=== PATIENT | female | born 1955 | race Caucasian/White ===

== ENCOUNTER 2016-06-25 09:17 | Emergency (ER) | payer OTHER ==
[~2016-06-25] VITALS: Wt 72.0 kg
[2016-06-25] MEDS ORDERED: HYDROCODONE/APAP (5/325) TAB PO ONE (10:00)
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
--- NOTE | 2016-06-25 10:54 | RADRPT ---
PROCEDURE: XR nasal bones. CLINICAL INDICATION: Trauma TECHNIQUE: Three views were performed. COMPARISON: No prior studies are available for comparison. FINDINGS: No acute fracture or dislocation is seen. The bone mineralization is normal. The soft tissues are unremarkable. IMPRESSION: No acute fracture or dislocation noted. .Travis Gan MD, Date Time Electronically viewed and signed by .Travis Gan MD, on 06/25/2016 10:54 .A/
[2016-06-25] MEDS ORDERED: AZIT250T94 PO (10:58)
[2016-06-25] MEDS ORDERED: HYDR-906 PO (10:58)
== END 2016-06-25 11:05 | disposition home or self-care (01) ==
LOC: FTE 09:17
DX: S09.92XA Unspecified injury of nose, initial encounter (principal); I10 Essential (primary) hypertension; W50.0XXA Accidental hit or strike by another person, initial encounter; Y92.9 Unspecified place or not applicable
CPT/HCPCS: 70160; Z7502; Z7610

== ENCOUNTER 2016-10-05 21:39 | Inpatient (IN) | payer OTHER ==
[~2016-10-05] VITALS: Ht 160 cm; Wt 82.8 kg
[~2016-10-05 21:39] MED LIST: AZIT250T94 PO; HYDR-906 PO
[2016-10-05] MEDS ORDERED: SOD CHLORIDE 0.9% 1,000 ML IV STA (22:07)
[2016-10-05] MEDS ORDERED: ONDANSETRON 4 MG INJ IV STA (22:07)
[2016-10-05] MEDS ORDERED: MECLIZINE 12.5 MG TAB PO ONE (22:30)
[2016-10-05] MEDS ORDERED: CYCL7.5T9 PO (22:45)
[2016-10-05] MEDS ORDERED: KETO75CA PO (22:45)
[2016-10-05] MEDS ORDERED: LANS15CA5 PO (22:45)
[2016-10-05] MEDS ORDERED: TRAM150C25 PO (22:45)
[2016-10-05 22:54] LABS: ADD SCAN DIFF NO
[2016-10-05 22:57] LABS: BASOPHILS % 0.3 % (0.0-2.0); EOSINOPHILS # 0.1 10^3/ul (0.0-0.5); EOSINOPHILS % 0.9 % (0.0-7.0); HEMATOCRIT 41.5 % (37.0-47.0); HEMOGLOBIN 14.4 g/dl (12.0-16.0); LYMPHOCYTES # 3.2 10^3/ul (0.8-2.9); LYMPHOCYTES % 27.4 % (15.0-51.0); MEAN CORPUSCULAR HEMOGLOBIN 31.1 pg (29.0-33.0); MEAN CORPUSCULAR HGB CONC 34.7 g/dl (32.0-37.0); MEAN CORPUSCULAR VOLUME 89.6 fl (82.0-101.0); MEAN PLATELET VOLUME 10.2 fl (7.4-10.4); MONOCYTE # 0.5 10^3/ul (0.3-0.9); MONOCYTES % 3.9 % (0.0-11.0); NEUTROPHIL # 7.8 10^3/ul (1.6-7.5); NEUTROPHILS % 67.2 % (39.0-77.0); PLATELET COUNT 402 10^3/UL (140-415); RED BLOOD COUNT 4.63 10^6/ul (4.20-5.40); RED CELL DISTRIBUTION WIDTH 12.4 % (11.5-14.5); WHITE BLOOD COUNT 11.7 10^3/ul (4.8-10.8)
[2016-10-05] MEDS ORDERED: morphine 4 MG/ML VIAL IV STA (22:59)
[2016-10-05 23:12] LABS: INR 0.9; PROTIME 12.1 Sec (12.2-14.2); PT RATIO 0.9
[2016-10-05 23:13] LABS: PARTIAL THROMBOPLASTIN TIME 26.3 Sec (25.0-35.0)
--- NOTE | 2016-10-05 23:15 | RADRPT ---
PROCEDURE: XR Chest. CLINICAL INDICATION: Shortness of breath. TECHNIQUE: AP Portable chest. COMPARISON: No pertinent prior examinations were submitted for comparison. FINDINGS: There is mild cardiomegaly. The lungs are clear. The osseous structures are unremarkable. IMPRESSION: No acute findings. RPTAT: HIKT .Candido Pastor MD, MD Date Time Electronically viewed and signed by .Candido Pastor MD, MD on 10/05/2016 23:14 .T/
[2016-10-05 23:19] LABS: ALANINE AMINOTRANSFERASE 29 IU/L (13-69); ALBUMIN 5.1 g/dl (3.3-4.9); ALBUMIN/GLOBULIN RATIO 1.82; ALKALINE PHOSPHATASE 83 IU/L (42-121); ANION GAP 14 (8-16); ASPARTATE AMINO TRANSFERASE 33 IU/L (15-46); BLOOD UREA NITROGEN 23 mg/dl (7-20); CARBON DIOXIDE 24 mmol/L (21-31); CHLORIDE 103 mmol/L (97-110); CREATININE 0.87 mg/dl (0.44-1.00); GLUCOSE 128 mg/dl (70-220); POTASSIUM 4.2 mmol/L (3.5-5.1); SODIUM 137 mmol/L (135-144); TOTAL PROTEIN 7.9 g/dl (6.1-8.1)
--- NOTE | 2016-10-05 23:23 | RADRPT ---
PROCEDURE: CT Brain without. CLINICAL INDICATION: Subtle onset vertigo. TECHNIQUE: A CT of the brain was performed on multidetector high-resolution CT scanner utilizing a xial sections from the skull base through the vertex without contrast. The scan was reviewed in sof t tissue brain and high frequency resolution bone algorithm windows. Images were reviewed on a high -resolution PACS workstation. One or more the following does reduction techniques were utilized: Aut omated exposure control, adjustment of the mA/ or kV according to patient's size, or use of iterativ e reconstruction technique. The exam CTDI = 43.86 mGy and the DLP = 720.23 mGy-cm. COMPARISON: None available. FINDINGS: The ventricles and sulci are minimally prominent indicative of volume loss. There is no intracrania l hemorrhage, mass effect or midline shift. No abnormal intra-axial or extra-axial fluid collection s are seen. The daniels/white matter differentiation is preserved. There are mild scattered foci of hypoattenuation in the white matter, which are nonspecific in etiol ogy but likely reflect chronic small vessel ischemic changes. There are mild intracranial vascular calcifications consistent with atherosclerosis. Deformity of the left lamina papyracea is noted like ly chronic. The visualized paranasal sinuses demonstrate mild scattered mucosal thickening mainly i n ethmoid air cells. The mastoid air cells are essentially clear. IMPRESSION: 1. No acute intracranial hemorrhage, transcortical infarction or mass effect. If clinical concern p ersists consider brain MRI. 2. Mild intracranial atherosclerosis and chronic small vessel ischemic changes. 3. Minimal generalized cerebral volume loss. RPTAT: HFN .Luke Vieira MD, MD Date Time Electronically viewed and signed by .Luke Vieira MD, MD on 10/05/2016 23:22 .N/
[2016-10-05 23:33] LABS: TROPONIN-I < 0.012 ng/ml (0.00-0.12)
[2016-10-06] VITALS (10 sets, daily range): BP systolic 125–167; BP diastolic 59–82; PULSE 58–75; RESP 18–19; Ht 160 cm; Wt 82.8 kg
[2016-10-06 00:15] LABS: ADD UMIC NO; UR ASCORBIC ACID NEGATIVE (NEGATIVE); UR BACTERIA FEW /HPF (NONE SEEN); UR BILIRUBIN (Dip) NEGATIVE (NEGATIVE); UR BLOOD (Dip) NEGATIVE (NEGATIVE); UR CLARITY SLIGHTLY CLOUDY (CLEAR); UR COLOR YELLOW (YELLOW); UR GLUCOSE (Dip) NEGATIVE (NEGATIVE); UR KETONES (Dip) NEGATIVE (NEGATIVE); UR LEUKOCYTE ESTERASE (Dip) NEGATIVE Leu/ul (NEGATIVE); UR NITRITE (Dip) NEGATIVE (NEGATIVE); UR RBC 1 /HPF (0-5); UR SPECIFIC GRAVITY (Dip) 1.016 (1.003-1.030); UR TOTAL PROTEIN (Dip) NEGATIVE (NEGATIVE); UR UROBILINOGEN (Dip) NEGATIVE (NEGATIVE)
[2016-10-06 00:31] LABS: UR SQUAMOUS EPITHELIAL CELL FEW /HPF (FEW)
[2016-10-06] MEDS ORDERED: MECLIZINE 12.5 MG TAB PO ONE (03:00)
[2016-10-06] MEDS ORDERED: LIDOCAINE/MYLANTA 40 ML BTL PO ONE (03:30)
[2016-10-06] MEDS ORDERED: ASPIRIN 81 MG TAB PO ONE (03:30)
[2016-10-06] MEDS ORDERED: SOD CHLORIDE 0.9% 1,000 ML IV ONE (04:00)
[2016-10-06] MEDS ORDERED: NITROGLYCERIN (SL) 0.4 MG TAB SL ONE (04:00)
--- NOTE | 2016-10-06 04:23 | ERA ---
ER Documentation Chief Complaint Date/Time DATE: 10/06/16 TIME: 04:18 Chief Complaint c/o nausea and vomiting. Dizzy x 3 hours. HPI 61-year-old female comes in for sudden onset of vertigo with vomiting and chest pain described as a sharp and pressure-like sensation substernal. Also has upper abdominal pain that did not start until she began vomiting. Denies fevers and chills. ROS All systems reviewed and are negative except as per history of present illness. Medications Home Meds Reported Medications Ketoprofen (Orudis) 75 Mg Capsule, 75 MG PO TID, CAP 10/05/16 Cyclobenzaprine Hcl (Cyclobenzaprine) 7.5 Mg Tablet, 7.5 MG PO Q8 Y for MUSCLE SPASMS, #60 TAB 10/05/16 Tramadol Hcl* (Tramadol* ER) 150 Mg Cpmp.25.75, 150 MG PO DAILY, #30 TAB 10/05/16 Lansoprazole* (Lansoprazole*) 15 Mg Capsule.dr, 15 MG PO DAILY, CAP 10/05/16 Discontinued Scripts Hydrocodone/Acetaminophen ([place] 5-325 Tablet) 1 Each Tablet, 1 TAB PO Q6H Y for PAIN, #12 TAB Prov:KARI CROOKS PA-C 06/25/16 Azithromycin* (Zithromax*) 250 Mg Tablet, 250 MG PO .ZPACK DIRECTED, #6 TAB TAKE 500 MG (2 TABS) THE FIRST DAY THEN 250 MG (1 TAB) DAYS 2-5 Prov:KARI CROOKS PA-C 06/25/16 Allergies Allergies: Coded Allergies: Penicillins (Unverified Allergy, Unknown, 10/05/16) PMhx/Soc Hx Alcohol Use: No Hx Substance Use: No Hx Tobacco Use: No Smoking Status: Never smoker Physical Exam Vitals Vital Signs Date Time Temp Pulse Resp B/P Pulse Ox O2 Delivery O2 Flow Rate FiO2 10/06/16 02:32 65 18 155/75 98 Room Air 10/06/16 01:19 64 18 187/83 100 Room Air 10/05/16 21:45 98.2 66 18 185/91 99 Physical Exam Const: [] Moderate distress, vomited just prior to exam. Head: Atraumatic Eyes: Normal Conjunctiva, EOMI, PRL ENT: Normal External Ears, Nose and Mouth. Neck: Full range of motion..~ No meningismus. Resp: Clear to auscultation bilaterally Cardio: Regular rate and rhythm, no murmurs Abd: Soft, non tender, non distended. Normal bowel sounds Skin: No petechiae or rashes Back: No midline or flank tenderness Ext: No cyanosis, or edema Neur: Awake and alert and oriented 3, cranial nerves II through XII intact, cerebellar finger to nose and Psych: Appears anxious Result Diagram: 10/05/16223810/05/162238 Results 24 hrs Laboratory Tests Test 10/05/16 22:39 10/05/16 23:27 White Blood Count 11.710^3/ul Red Blood Count 4.6310^6/ul Hemoglobin 14.4g/dl Hematocrit 41.5% Mean Corpuscular Volume 89.6fl Mean Corpuscular Hemoglobin 31.1pg Mean Corpuscular Hemoglobin Concent 34.7g/dl Red Cell Distribution Width 12.4% Platelet Count 62707^3/UL Mean Platelet Volume 10.2fl Neutrophils % 67.2% Lymphocytes % 27.4% Monocytes % 3.9% Eosinophils % 0.9% Basophils % 0.3% Nucleated Red Blood Cells % 0.0/100WBC Neutrophils # 7.810^3/ul Lymphocytes # 3.210^3/ul Monocytes # 0.510^3/ul Eosinophils # 0.110^3/ul Basophils # 0.010^3/ul Nucleated Red Blood Cells # 0.010^3/ul Prothrombin Time 12.1Sec Prothrombin Time Ratio 0.9 INR International Normalized Ratio 0.90 Activated Partial Thromboplast Time 26.3Sec Sodium Level 137mmol/L Potassium Level 4.2mmol/L Chloride Level 103mmol/L Carbon Dioxide Level 24mmol/L Anion Gap 14 Blood Urea Nitrogen 23mg/dl Creatinine 0.87mg/dl Glucose Level 128mg/dl Calcium Level 11.0mg/dl Total Bilirubin 0.0mg/dl Direct Bilirubin 0.00mg/dl Indirect Bilirubin 0.0mg/dl Aspartate Amino Transf (AST/SGOT) 33IU/L Alanine Aminotransferase (ALT/SGPT) 29IU/L Alkaline Phosphatase 83IU/L Troponin I < 0.012ng/ml Total Protein 7.9g/dl Albumin 5.1g/dl Globulin 2.80g/dl Albumin/Globulin Ratio 1.82 Lipase 93U/L Urine Color YELLOW Urine Clarity SLIGHTLY CLOUDY Urine pH 7.0 Urine Specific [place] 1.016 Urine Ketones NEGATIVEmg/dL Urine Nitrite NEGATIVEmg/dL Urine Bilirubin NEGATIVEmg/dL Urine Urobilinogen NEGATIVEmg/dL Urine Leukocyte Esterase NEGATIVELeu/ul Urine Microscopic RBC 1/HPF Urine Microscopic WBC 2/HPF Urine Squamous Epithelial Cells FEW/HPF Urine Bacteria FEW/HPF Urine Hemoglobin NEGATIVEmg/dL Urine Glucose NEGATIVEmg/dL Urine Total Protein NEGATIVEmg/dl Current Medications Medications (Trade) Dose Ordered Sig/Raj Route PRN Reason Start Time Stop Time Status Last Admin Dose Admin Sodium Chloride (NS) 1,000 ml @ 1,000 mls/hr Q1H STAT IV 10/05/16 22:07 10/05/16 23:06 DC 10/05/16 22:23 Ondansetron HCl (Zofran Inj) 4 mg ONCE STAT IV 10/05/16 22:07 10/05/16 22:10 DC 10/05/16 22:21 Meclizine HCl (Antivert) 25 mg ONCE ONCE PO 10/05/16 22:30 10/05/16 22:31 DC 10/05/16 22:21 Morphine Sulfate (morphine) 4 mg ONCE STAT IV 10/05/16 22:59 10/05/16 23:00 DC 10/05/16 23:16 Meclizine HCl (Antivert) 25 mg ONCE ONCE PO 10/06/16 03:00 10/06/16 03:13 DC 10/06/16 03:15 Aspirin (Aspirin) 324 mg ONCE ONCE PO 10/06/16 03:30 10/06/16 03:32 DC 10/06/16 04:07 Miscellaneous Medication (Gi Cocktail (2)) 40 ml ONCE ONCE PO 10/06/16 03:30 10/06/16 03:32 DC 10/06/16 04:07 Nitroglycerin 1 tab 1 tab ONCE ONCE SL 10/06/16 04:00 10/06/16 04:01 DC 10/06/16 04:07 Sodium Chloride (NS) 1,000 ml @ 1,000 mls/hr Q1H ONCE IV 10/06/16 04:00 10/06/16 04:59 10/06/16 04:07 Ondansetron HCl (Zofran Inj) 4 mg ER BRIDGE PRN IV NAUSEA AND/OR VOMITING 10/06/16 04:30 10/07/16 04:29 Acetaminophen (Tylenol Tab) 650 mg ER BRIDGE PRN PO MILD PAIN/FEVER 10/06/16 04:30 10/07/16 04:29 Procedures/MDM Patient with chest pain with frequent PVCs and an intractable vertigo. Patient has no other neurological deficits and I have less concern for acute stroke however I believe the patient deserves a cardiac and neurological workup. She was given Antivert 25 mg 2 doses as well as Zofran. Zofran resolved her nausea and Antivert helped with her vertigo but it persisted. She was given aspirin as well as nitro and a GI cocktail which did help with her chest pain. She has no signs of any acute infection currently although she does have an elevated white blood cell count likely secondary to vomiting.. She will be admitted to telemetry further monitoring. I spoke with Dr. Arellano who will be admitting. EKG interpretation: Normal sinus rhythm rate of 66, right axis deviation, sinus arrhythmia, no ST or T-wave changes concerning for acute ischemia label rewinder interpretation: Normal sinus rhythm with frequent PVCs. No other arrhythmias Chest x-ray interpretation: See no acute process, no infiltrate, no widened mediastinum, no pneumothorax, no fractures CT brain interpretation: I see no acute process. See no hemorrhage, no mass- effect no midline shift, no skull fractures Departure Diagnosis: Primary Impression: Chest pain Additional Impressions: Acute onset of severe vertigo Vomiting Condition: Stable SATISH JARAMILLO DO Oct 06, 2016 04:23
[2016-10-06] MEDS ORDERED: ONDANSETRON 4 MG INJ IV PRN (04:30)
[2016-10-06] MEDS ORDERED: ACETAMINOPHEN 325 MG TAB PO PRN (04:30)
[2016-10-06] MEDS ORDERED: NITROGLYCERIN (SL) 0.4 MG TAB SL PRN (08:30)
[2016-10-06 10:58] LABS: CHOL/HDL RATIO 2.6 RATIO; CHOLESTEROL 177 mg/dl (100-200); HDL CHOLESTEROL 67 mg/dl (35-98); TRIGLYCERIDES 156 mg/dl (0-149)
[2016-10-06 11:16] LABS: TROPONIN-I < 0.012 ng/ml (0.00-0.12)
[2016-10-06] MEDS: AMLODIPINE 5 MG TAB PO SCH (11:28)
[2016-10-06] MEDS: ASPIRIN 325 MG TAB PO SCH (11:28)
[2016-10-06] MEDS: ACETAMINOPHEN 325 MG TAB PO PRN (17:41)
--- NOTE | 2016-10-06 17:52 | QN ---
Documentation Comment [id number] MILAGROS VALENZUELA MD Oct 06, 2016 17:52
[2016-10-06] MEDS: SOD CHLORIDE 0.9% 1,000 ML IV SCH (19:00)
--- NOTE | 2016-10-06 20:48 | RADRPT ---
Echocardiogram Report Patient Name: CRUZ GUNTER Gender: Female Date: 1955 Study Date: 06-Oct-2016 Bridge Painter: Pallavi [facility] Location: 5555 Ref. Physician: MILAGROS VALENZUELA Quality: Technically Difficult Study Procedures: Transthoracic echocardiogram with complete 2D, M-Mode, and doppler examination. Indications: Chest Pain. 2D/M Mode Doppler Measurement Value Normal Ranges Measurement Value Normal Ranges LVIDd 2D 4.1 3.5 - 5.6 cm AV Peak Arron 1.7 m/sec LVIDs 2D 2.8 2.1 - 4.1 cm AV Peak PG 12.0 mmHg FS 2D 31.9 % LVOT Peak Arron 0.9 m/sec LVPWd 2D 1.3 0.6 - 1.1 cm LVOT Peak PG 3.0 mmHg IVSd 2D 1.3 0.6 - 1.1 cm MV E Peak Arron 0.8 m/sec IVS/LVPW 2D 1.0 MV A Peak Arron 1.1 m/sec AoR Diam 2D 2.6 2.0 - 3.7 cm MV E/A 0.7 LA/Ao 2D 1 0 - 1 MV Decel Time 236 msec EDV 2D 66.4 cm3 MV E/A 0.7 ESV 2D 21.0 cm3 TR Peak Arron 2.4 m/sec LA Dimen 2D 3.8 2.3 - 4.0 cm TR Peak PG 23.0 mmHg RVSP 26.0 mmHg Findings Left Ventricle: Normal left ventricular systolic function. Normal left ventricular cavity size. Mild concentric left ventricular hypertrophy. Ejection fraction is visually estimated at 60 %. Tissue Doppler/Mitral Doppler indices are consistent with impaired relaxation (Stage I diastolic dysfunction). Right Ventricle: Normal right ventricular size. Normal right ventricular systolic function. Left Atrium: The left atrium is normal in size. Right Atrium: The right atrium is normal in size. Mitral Valve: Mild mitral leaflet calcification. Mild mitral annular calcification. Trace mitral regurgitation. Aortic Valve: Normal appearance of the aortic valve. No significant aortic stenosis or insufficiency. Tricuspid Valve: Normal appearance of the tricuspid valve. Estimated peak PA systolic pressure 26 mmHg. There is mild tricuspid regurgitation. Pulmonic Valve: Pulmonic valve not well visualized. There is trace pulmonic regurgitation. Pericardium: Normal pericardium with no significant pericardial effusion. Aorta: Normal aortic root. IVC: Normal size and normal respiratory collapse consistent with normal right atrial pressure. Conclusions Normal left ventricular systolic function. Normal left ventricular cavity size. Mild concentric left ventricular hypertrophy. Ejection fraction is visually estimated at 60 %. Tissue Doppler/Mitral Doppler indices are consistent with impaired relaxation (Stage I diastolic dysfunction). Mild mitral leaflet calcification. Mild mitral annular calcification. Trace mitral regurgitation. Normal appearance of the tricuspid valve. Estimated peak PA systolic pressure 26 mmHg. There is mild tricuspid regurgitation. Pulmonic valve not well visualized. There is trace pulmonic regurgitation. Electronically Signed By: Abhishek Santana 06-Oct-2016 20:48:17 -0700 Patient Name: CRUZ GUNTER Study Date: 06-Oct-2016 [id number]
--- NOTE | 2016-10-06 22:08 | RADRPT ---
PROCEDURE: MRI Brain and IACs, without contrast. CLINICAL INDICATION: Vertigo. TECHNIQUE: An MRI of the brain was performed utilizing the following sequences: Sagittal T1 weigh marta, axial T2 weighted, axial diffusion weighted (EPI technique n=[id number]), axial ADC mapping, and axia l FLAIR. Additionally, thin section imaging through the internal auditory canals was performed utili bostonng the following sequences: 3D volume high resolution T2 weighted images. COMPARISON: Brain CT 10/05/2016. FINDINGS: MRI BRAIN: No diffusion weighted abnormalities are seen to suggest the presence of acute ischemia or recent inf arct. No hypointense signal abnormalities are seen on the GRE images to suggest the presence of blo od degradation products. There is no evidence of intracranial hemorrhage, mass effect, or midline s hift. No extra-axial fluid collections are seen. The ventricles and sulci are minimally enlarged ind icative of volume loss. There are mild scattered foci of T2 FLAIR hyperintensity in the periventricular, deep, and subcortic al white matter, which are nonspecific in etiology but likely reflect chronic small vessel ischemic changes. No abnormal intracranial vascular flow voids are noted. There is left lamina papyracea deformity wit h focal orbital fat herniation. The visualized paranasal sinuses demonstrate mild scattered mucosal thickening mainly in ethmoid air cell. MRI IACS: The internal auditory canals are patent. The seventh and eighth cranial nerve complexes are unremar kable. No cerebellar pontine angle mass lesion is detected. The inner ear structures including the cochlea, vestibule and semicircular canals are unremarkable. No vascular loops are identified. Th e visualized fifth cranial nerves and Meckel's cave reveal no abnormality. The mastoid air cells are clear. IMPRESSION: 1. No acute intracranial infarction, hemorrhage or mass. 2. Mild chronic small vessel ischemic changes. 3. Minimal generalized cerebral volume loss. 4. Unremarkable unenhanced MRI of internal auditory canals. RPTAT: HFN .Luke Vieira MD, MD Date Time Electronically viewed and signed by .Luke Vieira MD, MD on 10/06/2016 22:08 .N/
[2016-10-07] VITALS (14 sets, daily range): BP systolic 121–187; BP diastolic 61–106; PULSE 58–75; RESP 16–18
[2016-10-07 02:00] LABS: CREATINE KINASE 52 IU/L (23-200)
[2016-10-07 02:11] LABS: CK-MB 0.73 ng/ml (0.0-2.4); TROPONIN-I < 0.012 ng/ml (0.00-0.12)
[2016-10-07] MEDS: ACETAMINOPHEN 325 MG TAB PO PRN ×3 (04:45→18:09)
[2016-10-07] MEDS: hydrALAzine 20 MG INJ IV PRN ×2 (07:42→11:46)
[2016-10-07] MEDS: ASPIRIN 325 MG TAB PO SCH (08:57)
[2016-10-07] MEDS: AMLODIPINE 5 MG TAB PO SCH ×2 (08:57→21:10)
[2016-10-07] MEDS: morphine 2 MG INJ IV PRN ×3 (09:15→18:09)
[2016-10-07] MEDS: MECLIZINE 12.5 MG TAB PO PRN ×2 (09:15→13:51)
[2016-10-07] MEDS: ONDANSETRON 4 MG INJ IV PRN (09:15)
[2016-10-07 09:16] LABS: CREATINE KINASE 54 IU/L (23-200)
[2016-10-07 09:17] LABS: CHOL/HDL RATIO 2.9 RATIO
[2016-10-07 09:28] LABS: CK-MB 0.87 ng/ml (0.0-2.4); TROPONIN-I < 0.012 ng/ml (0.00-0.12)
[2016-10-07 10:07] LABS: ALBUMIN 4.8 g/dl (3.3-4.9); ALBUMIN/GLOBULIN RATIO 1.92; BILIRUBIN,INDIRECT 0.2 mg/dl (0-1.1); BILIRUBIN,TOTAL 0.2 mg/dl (0.2-1.3); CALCIUM 9.6 mg/dl (8.4-10.2); CREATININE 0.83 mg/dl (0.44-1.00); POTASSIUM 3.8 mmol/L (3.5-5.1); TOTAL PROTEIN 7.3 g/dl (6.1-8.1)
--- NOTE | 2016-10-07 12:16 | PN ---
Date/Time of Note Date/Time of Note DATE: 10/07/16 TIME: 12:13 Assessment/Plan VTE Prophylaxis VTE Prophylaxis Intervention: ambulation Lines/Catheters IV C[facility]ter Type (from [facility]): Peripheral IV Urinary Cath still in place: No Assessment/Plan Chief Complaint/Hosp Course 1. Hypertensive crisis 2. HTN, uncontrolled 3. Dyslipidemia 4. Obesity Problems: Assessment/Plan 1. Correcting BP 2. Optimization kidney function Subjective 24 Hr Interval Summary Respiratory: no complaints Cardiovascular: chest pain, edema, lightheadedness, no complaints, orthopenea, other, palpitations, paroxysmal nocturnal dyspnea Gastrointestinal: diarrhea, nausea, pain, No blood, No decreased appetite, No flatus, No no complaints, No other, No passing stool, No vomiting Genitourinary: no complaints Skin: no complaints Neurologic: dizziness, no complaints Immunologic: no complaints Exam/Review of Systems Vital Signs Vitals Vital Signs Date Time Temp Pulse Resp B/P Pulse Ox O2 Delivery O2 Flow Rate FiO2 10/07/16 11:46 98.3 73 17 187/106 98 10/06/16 04:28 Room Air Intake and Output 10/06/16 10/06/16 10/07/16 15:00 23:00 07:00 Intake Total 750 ml 750 ml Output Total 900 ml Balance 750 ml -150 ml Exam Constitutional: alert, oriented Head: normocephalic, other (small lesions on the vertex of the head) ENMT: nl external ears & nose Respiratory: clear to auscultation Cardiovascular: regular rate and rhythm Gastrointestinal: soft Genitourinary - Female: nl external genitalia Extremities: normal pulses Neurological: WINCH DRIVER II-XII intact Results Result Diagram: 10/05/16 2239 10/07/16 0750 Results 24 hrs Laboratory Tests Test 10/06/16 16:44 10/07/16 01:04 10/07/16 07:50 Troponin I < 0.012 < 0.012 < 0.012 Creatine Kinase 52 54 Creatine Kinase Index 1.4 1.6 Creatinine Kinase MB (Mass) 0.73 0.87 Sodium Level 141 Potassium Level 3.8 Chloride Level 106 Carbon Dioxide Level 26 Anion Gap 13 Blood Urea Nitrogen 19 Creatinine 0.83 Glucose Level 94 Calcium Level 9.6 Total Bilirubin 0.2 Direct Bilirubin 0.00 Indirect Bilirubin 0.2 Aspartate Amino Transf (AST/SGOT) 39 Alanine Aminotransferase (ALT/SGPT) 35 Alkaline Phosphatase 72 Total Protein 7.3 Albumin 4.8 Globulin 2.50 Albumin/Globulin Ratio 1.92 Triglycerides Level 183 H Cholesterol Level 207 H LDL Cholesterol, Calculated 100 HDL Cholesterol 70 Cholesterol/HDL Ratio 2.9 Medications Medications Current Medications Aspirin (Aspirin) 325 mg DAILY PO Last administered on 10/07/16 08:57; Admin Dose 325 MG; Start 10/06/16 at 09:00 Nitroglycerin (Nitroglycerin (Sl Tab) 0.4 Mg) 1 tab Q5M PRN SL ANGINA; Start at 08:30 Amlodipine Besylate (Norvasc) 5 mg DAILY PO Last administered on 10/07/16 08: 57; Admin Dose 5 MG; Start 10/06/16 at 09:00 Acetaminophen 650 mg 650 mg Q6H PRN PO PAIN AND OR ELEVATED TEMP Last administered on 10/07/16 07:42; Admin Dose 650 MG; Start 10/06/16 at 17:30 Sodium Chloride (NS) 1,000 ml @ 50 mls/hr Q20H IV Last administered on 19:00; Admin Dose 50 MLS/HR; Start 10/06/16 at 18:00 Hydralazine HCl (Apresoline) 10 mg Q4H PRN IV SBP>170 Last administered on 10/07 11:46; Admin Dose 10 MG; Start 10/06/16 at 20:00 Ondansetron HCl (Zofran Inj) 4 mg Q4H PRN IV NAUSEA AND/OR VOMITING Last administered on 10/07/16 09:15; Admin Dose 4 MG; Start 10/07/16 at 09:30 Meclizine HCl (Antivert) 12.5 mg TID PRN PO DIZZINESS Last administered on 10/07 09:15; Admin Dose 12.5 MG; Start 10/07/16 at 09:30 Morphine Sulfate (morphine) 2 mg Q4H PRN IV PAIN Last administered on 09:15; Admin Dose 2 MG; Start 10/07/16 at 09:30 SOCORRO OLMOS Oct 07, 2016 12:16
[2016-10-07] MEDS: LABETALOL 100 MG TAB PO SCH ×2 (13:59→21:00)
--- NOTE | 2016-10-07 14:01 | RADRPT ---
Vent Rate: 60 bpm RR Interval: 0 msec [place] Interval: 148 msec QRS Duration: 104 msec QT Interval: 426 msec QTC Interval: 426 msec P-R-T [place]: 39 - 132 - 73 degrees Normal sinus rhythm Incomplete right bundle branch block Possible Right ventricular hypertrophy Abnormal ECG Electronically Signed By: To Holloway [id number]
[2016-10-07] MEDS: SOD CHLORIDE 0.9% 1,000 ML IV SCH (15:59)
--- NOTE | 2016-10-07 17:08 | CONS ---
Date/Time of Note Date/Time of Note DATE: 10/07/16 TIME: 17:02 Assessment/Plan Assessment/Plan Chief Complaint/Hosp Course IMP 1.HTN-uregency/emergency 2.Chest pain-resolved. Negative trop x 3/NL EF by echo this admit 3.Dizziness-negative CT/MRI 4.abnl ecg-negative tropx 3/NL EF 5.MAE REcc: -Tele -serial ecg's -Continue norvasc with slight increase to improve BP control -Continue newly started labetelol and hydralazine with further uptitration as necessary -Continue asa -Consider carotid DARCY Problems: Consultation Date/Type/Reason Admit Date/Time Oct 06, 2016 at 04:06 Initial Consult Date 10/06/2016 Type of Consultation: cardiology Reason for Consultation Chest pain Referring Provider: MILAGROS VALENZUELA MD Exam/Review of Systems Vital Signs Vitals Vital Signs Date Time Temp Pulse Resp B/P Pulse Ox O2 Delivery O2 Flow Rate FiO2 10/07/16 16:22 75 10/07/16 15:55 98.3 17 144/70 98 10/06/16 04:28 Room Air Intake and Output 10/06/16 10/06/16 10/07/16 15:00 23:00 07:00 Intake Total 750 ml 750 ml Output Total 900 ml Balance 750 ml -150 ml Exam Review of Systems: CONSTITUTIONAL: No fevers, chills. PULMONARY: No sob CARDIOVASCULAR: No chest pain/palpitations GASTROINTESTINAL: No nausea/vomiting. GENITOURINARY: No hematuria/dysuria. MUSCULOSKELETAL: No myagias/arthalgias. PSYCHIATRIC: The patient denies depression. NEUROLOGIC: No weakness Constitutional: alert Psych: no complaints Head: normocephalic ENMT: mucosa pink and moist Neck: jvd, supple Respiratory: diminished breath sounds Cardiovascular: regular rate and rhythm Gastrointestinal: soft Musculoskeletal: muscle tone Extremities: edema Neurological: other Results Result Diagram: 10/05/16 2239 10/07/16 0750 Results 24 hrs Laboratory Tests Test 10/07/16 01:04 10/07/16 07:50 Creatine Kinase 52 54 Creatine Kinase Index 1.4 1.6 Creatinine Kinase MB (Mass) 0.73 0.87 Troponin I < 0.012 < 0.012 Sodium Level 141 Potassium Level 3.8 Chloride Level 106 Carbon Dioxide Level 26 Anion Gap 13 Blood Urea Nitrogen 19 Creatinine 0.83 Glucose Level 94 Calcium Level 9.6 Total Bilirubin 0.2 Direct Bilirubin 0.00 Indirect Bilirubin 0.2 Aspartate Amino Transf (AST/SGOT) 39 Alanine Aminotransferase (ALT/SGPT) 35 Alkaline Phosphatase 72 Total Protein 7.3 Albumin 4.8 Globulin 2.50 Albumin/Globulin Ratio 1.92 Triglycerides Level 183 H Cholesterol Level 207 H LDL Cholesterol, Calculated 100 HDL Cholesterol 70 Cholesterol/HDL Ratio 2.9 Medications Medications Current Medications Aspirin (Aspirin) 325 mg DAILY PO Last administered on 10/07/16 08:57; Admin Dose 325 MG; Start 10/06/16 at 09:00 Nitroglycerin (Nitroglycerin (Sl Tab) 0.4 Mg) 1 tab Q5M PRN SL ANGINA; Start at 08:30 Amlodipine Besylate (Norvasc) 5 mg DAILY PO Last administered on 10/07/16 08: 57; Admin Dose 5 MG; Start 10/06/16 at 09:00 Acetaminophen 650 mg 650 mg Q6H PRN PO PAIN AND OR ELEVATED TEMP Last administered on 10/07/16 07:42; Admin Dose 650 MG; Start 10/06/16 at 17:30 Sodium Chloride (NS) 1,000 ml @ 50 mls/hr Q20H IV Last administered on 15:59; Admin Dose 50 MLS/HR; Start 10/06/16 at 18:00 Hydralazine HCl (Apresoline) 10 mg Q4H PRN IV SBP>160 Last administered on 10/07 11:46; Admin Dose 10 MG; Start 10/06/16 at 20:00 Ondansetron HCl (Zofran Inj) 4 mg Q4H PRN IV NAUSEA AND/OR VOMITING Last administered on 10/07/16 09:15; Admin Dose 4 MG; Start 10/07/16 at 09:30 Meclizine HCl (Antivert) 12.5 mg TID PRN PO DIZZINESS Last administered on 10/07 13:51; Admin Dose 12.5 MG; Start 10/07/16 at 09:30 Morphine Sulfate (morphine) 2 mg Q4H PRN IV PAIN Last administered on 12:56; Admin Dose 2 MG; Start 10/07/16 at 09:30 Hydralazine HCl (Apresoline) 50 mg TID PO Last administered on 10/07/16 15:58 ; Admin Dose 50 MG; Start 10/07/16 at 13:00 Labetalol HCl (Normodyne) 100 mg BID PO Last administered on 10/07/16 13:59; Admin Dose 100 MG; Start 10/07/16 at 12:30 SOFIYA MARTINEZ Oct 07, 2016 17:08
--- NOTE | 2016-10-07 21:03 | RADRPT ---
PROCEDURE: US carotid arteries. CLINICAL INDICATION: Dizziness. TECHNIQUE: Multiple sonographic images of the carotid arteries and vertebral arteries were obtaine d utilizing daniels scale, duplex, and color-flow imaging. The images were reviewed on a PACS workstati on. COMPARISON: No prior studies are available for comparison. FINDINGS: Evaluation of the right carotid bifurcation region reveals moderate atherosclerotic disease. Evaluation of the left carotid bifurcation region reveals mild atherosclerotic disease. There is antegrade flow within the vertebral arteries bilaterally. RIGHT CAROTID MEASUREMENTS: Common Carotid [id number] (cm/sec) Internal Carotid Artery 126 (cm/sec) External Carotid Artery 168 (cm/sec) Vertebral Artery 75 (cm/sec) Internal Carotid/Common Carotid1.3 LEFT CAROTID MEASUREMENTS: Common Carotid [id number] (cm/sec) Internal Carotid Artery 119 (cm/sec) External Carotid Artery 130 (cm/sec) Vertebral Artery 57 (cm/sec) Internal Carotid/Common Carotid1.0 High velocity flow was noted in the left subclavian artery measuring 244 cm/sec. Validated velocity measurements with angiographic measurements. Velocity criteria are extrapolated f rom diameter data as defined by the Society of Radiologists in Ultrasound Consensus Conference. Radi ology 2003; 229;340-346. This study does indirectly reference the measurement of the distal ICA laura meter as the denominator for stenosis measurement. IMPRESSION: 1. A 50 - 69% stenosis of the right internal carotid artery. 2. Less than 50% stenosis of the left internal carotid artery. 3. Normal antegrade flow in the vertebral arteries bilaterally. 4. Probable significant stenosis in the left subclavian artery. RPTAT: QQ SRU Consensus Conference Criteria for the Diagnosis of Carotid Artery Stenosis* Degree of Stenosis, % ICA PSV, cm/sec Plaque Estimate, % ICA/CCA PSV Ratio Normal <125 None <2.0 <50 <125 <50 <2.0 50 69 125-230 >50 2.0-4.0 >70 but less than near occlusion >230 >50 <4.0 Near occlusion High, low, or undetectable Visible Variable Total occlusion Undetectable Visible, no detectable lumen Not applicable *Cartoid artery stenosis: daniels-scale and Doppler US diagnosis. Society of Radiologists in Ultrasound Consensus Conference. Radiology 2003; 229: 340-346 .Crispin Mobley MD, Date Time Electronically viewed and signed by .Crispin Mobley MD, on 10/07/2016 21:03 .R/
[2016-10-08] VITALS (11 sets, daily range): BP systolic 115–137; BP diastolic 60–67; PULSE 66–88; RESP 16–19
[2016-10-08] MEDS: MECLIZINE 12.5 MG TAB PO PRN ×3 (04:58→18:05)
[2016-10-08] MEDS: ONDANSETRON 4 MG INJ IV PRN (05:01)
[2016-10-08] MEDS: AMLODIPINE 5 MG TAB PO SCH ×2 (08:03→21:11)
[2016-10-08] MEDS: ASPIRIN 325 MG TAB PO SCH (08:03)
[2016-10-08] MEDS: LABETALOL 100 MG TAB PO SCH ×2 (08:04→21:11)
[2016-10-08] MEDS: morphine 2 MG INJ IV PRN ×3 (08:04→18:03)
[2016-10-08] MEDS: ACETAMINOPHEN 325 MG TAB PO PRN ×2 (08:07→18:03)
[2016-10-08 08:17] LABS: ADD SCAN DIFF NO
[2016-10-08 08:22] LABS: BASOPHILS % 0.4 % (0.0-2.0); EOSINOPHILS # 0.1 10^3/ul (0.0-0.5); EOSINOPHILS % 1.7 % (0.0-7.0); HEMATOCRIT 39.1 % (37.0-47.0); HEMOGLOBIN 13.2 g/dl (12.0-16.0); LYMPHOCYTES # 2.3 10^3/ul (0.8-2.9); LYMPHOCYTES % 30.7 % (15.0-51.0); MEAN CORPUSCULAR HGB CONC 33.8 g/dl (32.0-37.0); MEAN CORPUSCULAR VOLUME 91.8 fl (82.0-101.0); MEAN PLATELET VOLUME 9.8 fl (7.4-10.4); MONOCYTE # 0.4 10^3/ul (0.3-0.9); NEUTROPHIL # 4.7 10^3/ul (1.6-7.5); NEUTROPHILS % 61.8 % (39.0-77.0); PLATELET COUNT 337 10^3/UL (140-415); RED BLOOD COUNT 4.26 10^6/ul (4.20-5.40); RED CELL DISTRIBUTION WIDTH 12.9 % (11.5-14.5); WHITE BLOOD COUNT 7.6 10^3/ul (4.8-10.8)
[2016-10-08 08:41] LABS: CALCIUM 9.4 mg/dl (8.4-10.2); CREATININE 0.9 mg/dl (0.44-1.00); POTASSIUM 3.8 mmol/L (3.5-5.1)
[2016-10-08] MEDS: SOD CHLORIDE 0.9% 1,000 ML IV SCH (10:00)
--- NOTE | 2016-10-08 13:38 | CONS ---
Date/Time of Note Date/Time of Note DATE: 10/08/16 TIME: 13:35 Assessment/Plan Assessment/Plan Chief Complaint/Hosp Course IMP 1.HTN-uregency/emergency 2.Chest pain-resolved. Negative trop x 3/NL EF by echo this admit 3.Dizziness-negative CT/MRI 4.abnl ecg-negative tropx 3/NL EF 5.MAE 6.Carotid dvwfpvjg-76-50% Right REcc: -Tele -serial ecg's -Continue Labetalol/norvasc/hydralazine -Continue asa Problems: Consultation Date/Type/Reason Admit Date/Time Oct 06, 2016 at 04:06 Initial Consult Date 10/06/2016 Type of Consultation: cardiology Reason for Consultation Chest pain Referring Provider: MILAGROS VALENZUELA MD Exam/Review of Systems Vital Signs Vitals Vital Signs Date Time Temp Pulse Resp B/P Pulse Ox O2 Delivery O2 Flow Rate FiO2 10/08/16 12:14 66 10/08/16 12:00 98.5 16 117/60 98 10/06/16 04:28 Room Air Intake and Output 10/07/16 10/07/16 10/08/16 15:00 23:00 07:00 Intake Total 600 ml 400 ml Balance 600 ml 400 ml Exam Review of Systems: CONSTITUTIONAL: No fevers, chills. PULMONARY: No sob CARDIOVASCULAR: No chest pain/palpitations GASTROINTESTINAL: No nausea/vomiting. GENITOURINARY: No hematuria/dysuria. MUSCULOSKELETAL: No myagias/arthalgias. PSYCHIATRIC: The patient denies depression. NEUROLOGIC: No weakness Constitutional: alert, oriented Psych: no complaints Head: normocephalic ENMT: mucosa pink and moist Neck: jvd (9 cm water), supple Respiratory: clear to auscultation Cardiovascular: regular rate and rhythm Gastrointestinal: non-tender, soft Musculoskeletal: muscle tone (normal) Extremities: edema (none) Neurological: other (NO focal deficits) Results Result Diagram: 10/08/16 0807 10/08/16 0807 Results 24 hrs Laboratory Tests Test 10/08/16 08:07 White Blood Count 7.6 # Red Blood Count 4.26 Hemoglobin 13.2 Hematocrit 39.1 Mean Corpuscular Volume 91.8 Mean Corpuscular Hemoglobin 31.0 Mean Corpuscular Hemoglobin Concent 33.8 Red Cell Distribution Width 12.9 Platelet Count 337 Mean Platelet Volume 9.8 Neutrophils % 61.8 Lymphocytes % 30.7 Monocytes % 5.0 Eosinophils % 1.7 Basophils % 0.4 Nucleated Red Blood Cells % 0.0 Neutrophils # 4.7 Lymphocytes # 2.3 Monocytes # 0.4 Eosinophils # 0.1 Basophils # 0.0 Nucleated Red Blood Cells # 0.0 Sodium Level 147 H Potassium Level 3.8 Chloride Level 106 Carbon Dioxide Level 24 Anion Gap 21 #H Blood Urea Nitrogen 19 Creatinine 0.90 Glucose Level 122 Calcium Level 9.4 Medications Medications Current Medications Aspirin (Aspirin) 325 mg DAILY PO Last administered on 10/08/16 08:03; Admin Dose 325 MG; Start 10/06/16 at 09:00 Nitroglycerin (Nitroglycerin (Sl Tab) 0.4 Mg) 1 tab Q5M PRN SL ANGINA; Start at 08:30 Acetaminophen 650 mg 650 mg Q6H PRN PO PAIN AND OR ELEVATED TEMP Last administered on 10/08/16 08:07; Admin Dose 650 MG; Start 10/06/16 at 17:30 Sodium Chloride (NS) 1,000 ml @ 50 mls/hr Q20H IV Last administered on 10:00; Admin Dose 50 MLS/HR; Start 10/06/16 at 18:00 Hydralazine HCl (Apresoline) 10 mg Q4H PRN IV SBP>160 Last administered on 10/07 11:46; Admin Dose 10 MG; Start 10/06/16 at 20:00 Ondansetron HCl (Zofran Inj) 4 mg Q4H PRN IV NAUSEA AND/OR VOMITING Last administered on 10/08/16 05:01; Admin Dose 4 MG; Start 10/07/16 at 09:30 Meclizine HCl (Antivert) 12.5 mg TID PRN PO DIZZINESS Last administered on 10/08 12:10; Admin Dose 12.5 MG; Start 10/07/16 at 09:30 Morphine Sulfate (morphine) 2 mg Q4H PRN IV PAIN Last administered on 12:07; Admin Dose 2 MG; Start 10/07/16 at 09:30 Hydralazine HCl (Apresoline) 50 mg TID PO Last administered on 10/08/16 13:07 ; Admin Dose 50 MG; Start 10/07/16 at 13:00 Labetalol HCl (Normodyne) 100 mg BID PO Last administered on 10/08/16 08:04; Admin Dose 100 MG; Start 10/07/16 at 12:30 Amlodipine Besylate (Norvasc) 5 mg BID PO Last administered on 10/08/16 08:03 ; Admin Dose 5 MG; Start 10/07/16 at 21:00 SOFIYA MARTINEZ Oct 08, 2016 13:38
--- NOTE | 2016-10-08 14:31 | PN ---
Date/Time of Note Date/Time of Note DATE: 10/08/16 TIME: 14:29 Assessment/Plan VTE Prophylaxis VTE Prophylaxis Intervention: ambulation Lines/Catheters IV [facility] Urinary Cath still in place: No Assessment/Plan Chief Complaint/Hosp Course 1. Hypertensive crisis, resolved 2. HTN, controlled 3. Dyslipidemia 4. Obesity 5. CArotid artery stenosis Problems: Assessment/Plan 1. Start statin 2. dR Miles TO SEE Subjective 24 Hr Interval Summary Constitutional: improved, no complaints Respiratory: no complaints Cardiovascular: no complaints Exam/Review of Systems Vital Signs Vitals Vital Signs Date Time Temp Pulse Resp B/P Pulse Ox O2 Delivery O2 Flow Rate FiO2 10/08/16 12:14 66 10/08/16 12:00 98.5 16 117/60 98 10/06/16 04:28 Room Air Intake and Output 10/07/16 10/07/16 10/08/16 15:00 23:00 07:00 Intake Total 600 ml 400 ml Balance 600 ml 400 ml Exam Psych: no complaints Eyes: nl conjunctiva Respiratory: clear to auscultation Cardiovascular: regular rate and rhythm Results Result Diagram: 10/08/16 0807 10/08/16 0807 Results 24 hrs Laboratory Tests Test 10/08/16 08:07 White Blood Count 7.6 # Red Blood Count 4.26 Hemoglobin 13.2 Hematocrit 39.1 Mean Corpuscular Volume 91.8 Mean Corpuscular Hemoglobin 31.0 Mean Corpuscular Hemoglobin Concent 33.8 Red Cell Distribution Width 12.9 Platelet Count 337 Mean Platelet Volume 9.8 Neutrophils % 61.8 Lymphocytes % 30.7 Monocytes % 5.0 Eosinophils % 1.7 Basophils % 0.4 Nucleated Red Blood Cells % 0.0 Neutrophils # 4.7 Lymphocytes # 2.3 Monocytes # 0.4 Eosinophils # 0.1 Basophils # 0.0 Nucleated Red Blood Cells # 0.0 Sodium Level 147 H Potassium Level 3.8 Chloride Level 106 Carbon Dioxide Level 24 Anion Gap 21 #H Blood Urea Nitrogen 19 Creatinine 0.90 Glucose Level 122 Calcium Level 9.4 Medications Medications Current Medications Aspirin (Aspirin) 325 mg DAILY PO Last administered on 10/08/16t 08:03; Admin Dose 325 MG; Start 10/06/16 at 09:00 Nitroglycerin (Nitroglycerin (Sl Tab) 0.4 Mg) 1 tab Q5M PRN SL ANGINA; Start at 08:30 Acetaminophen 650 mg 650 mg Q6H PRN PO PAIN AND OR ELEVATED TEMP Last administered on 10/08/16 08:07; Admin Dose 650 MG; Start 10/06/16 at 17:30 Sodium Chloride (NS) 1,000 ml @ 50 mls/hr Q20H IV Last administered on 10:00; Admin Dose 50 MLS/HR; Start 10/06/16 at 18:00 Hydralazine HCl (Apresoline) 10 mg Q4H PRN IV SBP>160 Last administered on 10/07 11:46; Admin Dose 10 MG; Start 10/06/16 at 20:00 Ondansetron HCl (Zofran Inj) 4 mg Q4H PRN IV NAUSEA AND/OR VOMITING Last administered on 10/08/16 05:01; Admin Dose 4 MG; Start 10/07/16 at 09:30 Meclizine HCl (Antivert) 12.5 mg TID PRN PO DIZZINESS Last administered on 10/08 12:10; Admin Dose 12.5 MG; Start 10/07/16 at 09:30 Morphine Sulfate (morphine) 2 mg Q4H PRN IV PAIN Last administered on 12:07; Admin Dose 2 MG; Start 10/07/16 at 09:30 Hydralazine HCl (Apresoline) 50 mg TID PO Last administered on 10/08/16 13:07 ; Admin Dose 50 MG; Start 10/07/16 at 13:00 Labetalol HCl (Normodyne) 100 mg BID PO Last administered on 10/08/16 08:04; Admin Dose 100 MG; Start 10/07/16 at 12:30 Amlodipine Besylate (Norvasc) 5 mg BID PO Last administered on 10/08/16 08:03 ; Admin Dose 5 MG; Start 10/07/16 at 21:00 Atorvastatin Calcium (Lipitor) 40 mg HS PO ; Start 10/08/16 at 21:00 SOCORRO OLMOS Oct 08, 2016 14:31
--- NOTE | 2016-10-08 15:54 | CONS ---
Date/Time of Note Date/Time of Note DATE: 10/08/16 TIME: 15:52 Assessment/Plan Assessment/Plan Chief Complaint/Hosp Course Carotid stenosis Problems: Additional Assessment/Plan 61-year-old female comes in for sudden onset of vertigo with vomiting and chest pain described as a sharp and pressure-like sensation substernal. Part of her workup included a carotid duplex which showed a 50-69% stenosis in the right internal carotid artery Patient has not had a stroke in the past No neurological symptoms at this time Will monitor to carotid stenosis Repeat the carotid duplex in 6 months Consultation Date/Type/Reason Admit Date/Time Oct 06, 2016 at 04:06 Date of Consultation: Oct 08, 2016 Reason for Consultation Carotid stenosis Constitutional: improved, no complaints ENT: No bleeding, No congestion, No discharge, No dysphagia, No no complaints, No other, No pain, No sore throat Respiratory: no complaints, No cough, No other, No pain, No pleuritic pain, No shortness of breath, No sputum, No wheezing Cardiovascular: no complaints, No chest pain, No edema, No lightheadedness, No orthopenea, No other, No palpitations, No paroxysmal nocturnal dyspnea Gastrointestinal: diarrhea, nausea, pain, No blood, No constipation, No decreased appetite, No flatus, No no complaints , No other, No passing stool, No vomiting Genitourinary: no complaints, No bleeding, No discharge, No dysuria, No flank pain, No hematuria, No other Musculoskeletal: No back pain, No bone/joint pain, No neck pain, No no complaints, No other, No restricted range of motion, No swelling Skin: no complaints Neurologic: dizziness, no complaints Psychological: no complaints Immunologic: no complaints Past Surgical History Past Surgical Hx: no surgical history Social History Alcohol Use: none Smoking Status: Never smoker Exam/Review of Systems Vital Signs Vitals Vital Signs Date Time Temp Pulse Resp B/P Pulse Ox O2 Delivery O2 Flow Rate FiO2 10/08/16 12:14 66 10/08/16 12:00 98.5 16 117/60 98 10/06/16 04:28 Room Air Intake and Output 10/07/16 10/07/16 10/08/16 15:00 23:00 07:00 Intake Total 600 ml 400 ml Balance 600 ml 400 ml Exam ENMT: nl external ears & nose, nl lips & teeth, nl nasal mucosa & septum Neck: non-tender, supple Respiratory: clear to auscultation, normal air movement Cardiovascular: nl pulses, regular rate and rhythm Results Result Diagram: 10/08/16 0810/08/16 0807 Results 24 hrs Laboratory Tests Test 10/08/16 08:07 White Blood Count 7.6 # Red Blood Count 4.26 Hemoglobin 13.2 Hematocrit 39.1 Mean Corpuscular Volume 91.8 Mean Corpuscular Hemoglobin 31.0 Mean Corpuscular Hemoglobin Concent 33.8 Red Cell Distribution Width 12.9 Platelet Count 337 Mean Platelet Volume 9.8 Neutrophils % 61.8 Lymphocytes % 30.7 Monocytes % 5.0 Eosinophils % 1.7 Basophils % 0.4 Nucleated Red Blood Cells % 0.0 Neutrophils # 4.7 Lymphocytes # 2.3 Monocytes # 0.4 Eosinophils # 0.1 Basophils # 0.0 Nucleated Red Blood Cells # 0.0 Sodium Level 147 H Potassium Level 3.8 Chloride Level 106 Carbon Dioxide Level 24 Anion Gap 21 #H Blood Urea Nitrogen 19 Creatinine 0.90 Glucose Level 122 Calcium Level 9.4 Medications Medications Current Medications Aspirin (Aspirin) 325 mg DAILY PO Last administered on 10/08/16 08:03; Admin Dose 325 MG; Start 10/06/16 at 09:00 Nitroglycerin (Nitroglycerin (Sl Tab) 0.4 Mg) 1 tab Q5M PRN SL ANGINA; Start at 08:30 Acetaminophen 650 mg 650 mg Q6H PRN PO PAIN AND OR ELEVATED TEMP Last administered on 10/08/16 08:07; Admin Dose 650 MG; Start 10/06/16 at 17:30 Sodium Chloride (NS) 1,000 ml @ 50 mls/hr Q20H IV Last administered on 10:00; Admin Dose 50 MLS/HR; Start 10/06/16 at 18:00 Hydralazine HCl (Apresoline) 10 mg Q4H PRN IV SBP>160 Last administered on 10/07 11:46; Admin Dose 10 MG; Start 10/06/16 at 20:00 Ondansetron HCl (Zofran Inj) 4 mg Q4H PRN IV NAUSEA AND/OR VOMITING Last administered on 10/08/16 05:01; Admin Dose 4 MG; Start 10/07/16 at 09:30 Meclizine HCl (Antivert) 12.5 mg TID PRN PO DIZZINESS Last administered on 10/08 12:10; Admin Dose 12.5 MG; Start 10/07/16 at 09:30 Morphine Sulfate (morphine) 2 mg Q4H PRN IV PAIN Last administered on 12:07; Admin Dose 2 MG; Start 10/07/16 at 09:30 Hydralazine HCl (Apresoline) 50 mg TID PO Last administered on 10/08/16 13:07 ; Admin Dose 50 MG; Start 10/07/16 at 13:00 Labetalol HCl (Normodyne) 100 mg BID PO Last administered on 10/08/16 08:04; Admin Dose 100 MG; Start 10/07/16 at 12:30 Amlodipine Besylate (Norvasc) 5 mg BID PO Last administered on 10/08/16 08:03 ; Admin Dose 5 MG; Start 10/07/16 at 21:00 Atorvastatin Calcium (Lipitor) 40 mg HS PO ; Start 10/08/16 at 21:00 MARICRUZ ALLRED MD Oct 08, 2016 15:54
[2016-10-08] MEDS: ATORVASTATIN 40 MG TAB PO SCH (21:10)
[2016-10-09] VITALS (12 sets, daily range): BP systolic 107–158; BP diastolic 58–74; PULSE 64–83; RESP 18–20
[2016-10-09] MEDS: ACETAMINOPHEN 325 MG TAB PO PRN ×2 (03:39→11:41)
[2016-10-09] MEDS: morphine 2 MG INJ IV PRN ×2 (05:17→12:46)
[2016-10-09] MEDS: SOD CHLORIDE 0.9% 1,000 ML IV SCH (06:00)
[2016-10-09] MEDS: ASPIRIN 325 MG TAB PO SCH (08:21)
[2016-10-09] MEDS: LABETALOL 100 MG TAB PO SCH ×2 (08:22→20:52)
[2016-10-09] MEDS: AMLODIPINE 5 MG TAB PO SCH ×2 (08:23→20:53)
--- NOTE | 2016-10-09 08:48 | HP ---
DATE OF ADMISSION: 10/06/2016 HISTORY OF PRESENT ILLNESS: The patient is a 61-year-old female who presented to this hospital complaining of vertigo with vomiting and chest pain and is being admitted for further management. The patient's WBC 11.7, hematocrit 41.5. The patient's sodium 137, potassium 4.2, calcium 11.0. BUN 23. The patient had a CT of the brain, shows no acute intracranial hemorrhage, no intracranial infarction or mass effect. Mild intracranial atherosclerosis and chronic small vessel ischemic changes, minimal generalized cerebral volume loss. Chest x-ray done shows no acute findings. Infectious disease is being consulted for further management. The patient has EKG that shows normal sinus rhythm, nonspecific changes. PAST MEDICAL HISTORY: Positive for dyspepsia, hypertension and pain. ALLERGIES: PENICILLIN. SOCIAL HISTORY: Negative. FAMILY HISTORY: Negative. MEDICATIONS: At home: 1. Flexeril. 2. Ketoprofen. 3. ppi 4. Prevacid. 5. Tramadol. REVIEW OF SYSTEMS: HEENT: Unremarkable. No sore throat. RESPIRATORY: Unremarkable. CARDIOVASCULAR: No chest pain. GASTROINTESTINAL: Abdomen unremarkable. EXTREMITIES: Unremarkable. NEUROLOGIC: SAP PORTAL DEVELOPER: Normal. PHYSICAL EXAMINATION: GENERAL APPEARANCE: The patient is awake, alert, obese female. VITAL SIGNS: Stable. Pulse 66, blood pressure 125/78. HEENT: Head is atraumatic, normocephalic. Pupils reactive to light. NECK: Supple. There is no JVD. LUNGS: Clear. CARDIAC: CVS: S1, S2 normal. ABDOMEN: Soft, obese, bowel sounds positive. No palpable mass or hepatosplenomegaly. No guarding or rebound tenderness. EXTREMITIES: No cyanosis, clubbing or edema. NEUROLOGIC: SAP PORTAL DEVELOPER: The patient is awake, alert, with no focal deficit. DATA: As mentioned above. IMPRESSION: 1. Vertigo. 2. Chest pain. 3. Rule out myocardial infarction. 4. Hypercalcemia. 5. Dyslipidemia. 6. Hypertension. PLAN: Give the patient and aspirin, nitro p.r.n. Blood pressure control. Cardiology consultation. 2D echo. Lipid panel. Orders were done. Dictated By: Naveen Arellano MD /[email or web address]/elena /Document#: [id number] MICHAEL
[2016-10-09] MEDS: MECLIZINE 12.5 MG TAB PO PRN ×2 (12:05→16:30)
--- NOTE | 2016-10-09 14:55 | CONS ---
Date/Time of Note Date/Time of Note DATE: 10/09/16 TIME: 14:52 Assessment/Plan Assessment/Plan Chief Complaint/Hosp Course IMP 1.HTN-uregency/emergency-now improved on current medical regimen 2.Chest pain-resolved. Negative trop x 3/NL EF by echo this admit 3.Dizziness-negative CT/MRI-recurrent 4.abnl ecg-negative tropx 3/NL EF 5.MAE 6.Carotid wxxizefr-61-62% Right. Vascular surgery following with plans for conservative management at this time REcc: -Tele -serial ecg's -Continue Labetalol/norvasc/hydralazine and f/u BP with possible need to decrease dose of norvasc if BP remains marginal -Continue asa -Continue newly started statin Problems: Consultation Date/Type/Reason Admit Date/Time Oct 06, 2016 at 04:06 Initial Consult Date 10/06/2016 Type of Consultation: cardiology Reason for Consultation chest pain Referring Provider: MILAGROS VALENZUELA MD Exam/Review of Systems Vital Signs Vitals Vital Signs Date Time Temp Pulse Resp B/P Pulse Ox O2 Delivery O2 Flow Rate FiO2 10/09/16 12:16 70 10/09/16 11:55 98.8 18 130/70 98 10/06/16 04:28 Room Air Intake and Output 10/08/16 10/08/16 10/09/16 15:00 23:00 07:00 Intake Total 480 ml 300 ml Balance 480 ml 300 ml Exam Review of Systems: CONSTITUTIONAL: No fevers, chills. PULMONARY: No sob CARDIOVASCULAR: No chest pain/palpitations GASTROINTESTINAL: No nausea/vomiting. GENITOURINARY: No hematuria/dysuria. MUSCULOSKELETAL: No myagias/arthalgias. PSYCHIATRIC: The patient denies depression. NEUROLOGIC: dizziness Constitutional: alert Psych: no complaints Head: normocephalic ENMT: mucosa pink and moist Neck: jvd (8 cm water), supple Respiratory: clear to auscultation Cardiovascular: regular rate and rhythm Gastrointestinal: non-tender, soft Musculoskeletal: muscle tone (normal) Extremities: edema (none) Neurological: other (No focal deficits) Results Result Diagram: 10/08/16 0807 10/08/16 0807 Medications Medications Current Medications Aspirin (Aspirin) 325 mg DAILY PO Last administered on 10/09/16t 08:21; Admin Dose 325 MG; Start 10/06/16 at 09:00 Nitroglycerin (Nitroglycerin (Sl Tab) 0.4 Mg) 1 tab Q5M PRN SL ANGINA; Start at 08:30 Acetaminophen 650 mg 650 mg Q6H PRN PO PAIN AND OR ELEVATED TEMP Last administered on 10/09/16 11:41; Admin Dose 650 MG; Start 10/06/16 at 17:30 Sodium Chloride (NS) 1,000 ml @ 50 mls/hr Q20H IV Last administered on 10:00; Admin Dose 50 MLS/HR; Start 10/06/16 at 18:00 Hydralazine HCl (Apresoline) 10 mg Q4H PRN IV SBP>160 Last administered on 10/07 11:46; Admin Dose 10 MG; Start 10/06/16 at 20:00 Ondansetron HCl (Zofran Inj) 4 mg Q4H PRN IV NAUSEA AND/OR VOMITING Last administered on 10/08/16 05:01; Admin Dose 4 MG; Start 10/07/16 at 09:30 Meclizine HCl (Antivert) 12.5 mg TID PRN PO DIZZINESS Last administered on 10/09 12:05; Admin Dose 12.5 MG; Start 10/07/16 at 09:30 Morphine Sulfate (morphine) 2 mg Q4H PRN IV PAIN Last administered on 12:46; Admin Dose 2 MG; Start 10/07/16 at 09:30 Hydralazine HCl (Apresoline) 50 mg TID PO Last administered on 10/09/16 12:54 ; Admin Dose 50 MG; Start 10/07/16 at 13:00 Labetalol HCl (Normodyne) 100 mg BID PO Last administered on 10/09/16 08:22; Admin Dose 100 MG; Start 10/07/16 at 12:30 Amlodipine Besylate (Norvasc) 5 mg BID PO Last administered on 10/08/16 21:11 ; Admin Dose 5 MG; Start 10/07/16 at 21:00 Atorvastatin Calcium (Lipitor) 40 mg HS PO Last administered on 10/08/16 21:10 ; Admin Dose 40 MG; Start 10/08/16 at 21:00 SOFIYA MARTINEZ Oct 09, 2016 14:55
--- NOTE | 2016-10-09 14:55 | PN ---
Date/Time of Note Date/Time of Note DATE: 10/09/16 TIME: 14:54 Assessment/Plan Lines/Catheters IV Catheter Type (from Nrsg): Saline Lock Omal[place] in Place (from Nrsg): No Assessment/Plan Chief Complaint/Hosp Course Problems: Additional Assessment/Plan 61-year-old female comes in for sudden onset of vertigo with vomiting and chest pain described as a sharp and pressure-like sensation substernal. Part of her workup included a carotid duplex which showed a 50-69% stenosis in the right internal carotid artery Patient has not had a stroke in the past No neurological symptoms at this time Will monitor to carotid stenosis Repeat the carotid duplex in 6 months Problems: Subjective 24 Hr Interval Summary Constitutional: improved Pain Control: mild Exam/Review of Systems Vital Signs Vitals Vital Signs Date Time Temp Pulse Resp B/P Pulse Ox O2 Delivery O2 Flow Rate FiO2 10/09/16 12:16 70 10/09/16 11:55 98.8 18 130/70 98 10/06/16 04:28 Room Air Intake and Output 10/08/16 10/08/16 10/09/16 15:00 23:00 07:00 Intake Total 480 ml 300 ml Balance 480 ml 300 ml Exam ENMT: mucosa pink and moist, nl external ears & nose, nl lips & teeth, nl nasal mucosa & septum Neck: non-tender, supple Respiratory: clear to auscultation, normal air movement Cardiovascular: nl pulses, regular rate and rhythm Results Result Diagram: 10/08/16 0807 10/08/16 0807 MARICRUZ ALLRED MD Oct 09, 2016 14:55
[2016-10-09] MEDS ORDERED: ACETAMINOPHEN 325 MG TAB PO PRN (16:00)
--- NOTE | 2016-10-09 17:48 | PN ---
Date/Time of Note Date/Time of Note DATE: 10/09/16 TIME: 17:47 Assessment/Plan VTE Prophylaxis VTE Prophylaxis Intervention: other Lines/Catheters IV [facility] Type [facility]from [facility] Saline Lock Urinary Cath still in place: No Assessment/Plan Chief Complaint/Hosp Course htn hypernatremia uti headache carotid artery dis plan antibiotic topamax Problems: Subjective 24 Hr Interval Summary Subjective hx not possible: other (uti sym+) Exam/Review of Systems Vital Signs Vitals Vital Signs Date Time Temp Pulse Resp B/P Pulse Ox O2 Delivery O2 Flow Rate FiO2 10/09/16 16:12 76 10/09/16 15:53 98.3 20 158/74 96 10/06/16 04:28 Room Air Intake and Output 10/08/16 10/08/16 10/09/16 15:00 23:00 07:00 Intake Total 480 ml 300 ml Balance 480 ml 300 ml Exam Constitutional: other (dizziness+) Cardiovascular: regular rate and rhythm Gastrointestinal: soft Musculoskeletal: nl extremities to inspection Extremities: normal pulses Results Result Diagram: 10/08/16 0807 10/08/16 0807 Medications Medications Current Medications Aspirin (Aspirin) 325 mg DAILY PO Last administered on 10/09/16 08:21; Admin Dose 325 MG; Start 10/06/16 at 09:00 Nitroglycerin 1 tab 1 tab Q5M PRN SL ANGINA; Start 10/06/16 at 08:30 Sodium Chloride (NS) 1,000 ml @ 50 mls/hr Q20H IV Last administered on 10:00; Admin Dose 50 MLS/HR; Start 10/06/16 at 18:00 Hydralazine HCl (Apresoline) 10 mg Q4H PRN IV SBP>160 Last administered on 10/07 11:46; Admin Dose 10 MG; Start 10/06/16 at 20:00 Ondansetron HCl (Zofran Inj) 4 mg Q4H PRN IV NAUSEA AND/OR VOMITING Last administered on 10/08/16 05:01; Admin Dose 4 MG; Start 10/07/16 at 09:30 Morphine Sulfate (morphine) 2 mg Q4H PRN IV PAIN Last administered on 12:46; Admin Dose 2 MG; Start 10/07/16 at 09:30 Hydralazine HCl (Apresoline) 50 mg TID PO Last administered on 10/09/16 12:54 ; Admin Dose 50 MG; Start 10/07/16 at 13:00 Labetalol HCl (Normodyne) 100 mg BID PO Last administered on 10/09/16 08:22; Admin Dose 100 MG; Start 10/07/16 at 12:30 Amlodipine Besylate (Norvasc) 5 mg BID PO Last administered on 10/08/16 21:11 ; Admin Dose 5 MG; Start 10/07/16 at 21:00 Atorvastatin Calcium (Lipitor) 40 mg HS PO Last administered on 10/08/16 21:10 ; Admin Dose 40 MG; Start 10/08/16 at 21:00 Acetaminophen (Tylenol Tab) 650 mg Q4H PRN PO PAIN AND OR ELEVATED TEMP Last administered on 10/09/16 16:30; Admin Dose 650 MG; Start 10/09/16 at 16:00 Meclizine HCl (Antivert) 25 mg TID PRN PO DIZZINESS; Start 10/09/16 at 17:30; Status MILAGROS OBRIEN MD Oct 09, 2016 17:48
[2016-10-09] MEDS: LEVOFLOXACIN 500MG/D5W (PMX) 100 ML IVPB SCH (18:32)
[2016-10-09] MEDS ORDERED: SOD CHLORIDE 0.45% 1,000 ML IV SCH (20:00)
[2016-10-09] MEDS: ATORVASTATIN 40 MG TAB PO SCH (20:52)
[2016-10-09] MEDS: TOPIRAMATE 25 MG TAB PO SCH (21:03)
[2016-10-10] VITALS (10 sets, daily range): BP systolic 113–133; BP diastolic 65–78; PULSE 67–83; RESP 18–19
[2016-10-10] MEDS: morphine 2 MG INJ IV PRN ×3 (00:33→14:36)
[2016-10-10] MEDS: MECLIZINE 12.5 MG TAB PO PRN ×2 (03:53→09:10)
[2016-10-10] MEDS: HYDROCODONE/APAP (5/325) TAB PO PRN ×2 (03:54→12:38)
[2016-10-10] MEDS: TOPIRAMATE 25 MG TAB PO SCH (09:11)
[2016-10-10] MEDS: LABETALOL 100 MG TAB PO SCH (09:11)
[2016-10-10] MEDS: AMLODIPINE 5 MG TAB PO SCH (09:11)
[2016-10-10] MEDS: ASPIRIN 325 MG TAB PO SCH (09:11)
--- NOTE | 2016-10-10 13:53 | PN ---
Date/Time of Note Date/Time of Note DATE: 10/10/16 TIME: 13:52 Assessment/Plan Lines/Catheters IV Catheter Type (from Nrsg): Peripheral IV Omalley in Place (from Nrsg): No Assessment/Plan Chief Complaint/Hosp Course Problems: Additional Assessment/Plan 61-year-old female comes in for sudden onset of vertigo with vomiting and chest pain described as a sharp and pressure-like sensation substernal. Part of her workup included a carotid duplex which showed a 50-69% stenosis in the right internal carotid artery Patient has not had a stroke in the past No neurological symptoms at this time Will monitor to carotid stenosis Repeat the carotid duplex in 6 months Problems: Subjective 24 Hr Interval Summary Constitutional: improved Pain Control: mild Exam/Review of Systems Vital Signs Vitals Vital Signs Date Time Temp Pulse Resp B/P Pulse Ox O2 Delivery O2 Flow Rate FiO2 10/10/16 12:18 67 10/10/16 11:40 97.6 19 123/65 96 Intake and Output 10/09/16 10/09/16 10/10/16 15:00 23:00 07:00 Intake Total 600 ml 790 ml Balance 600 ml 790 ml Exam ENMT: mucosa pink and moist, nl external ears & nose, nl lips & teeth, nl nasal mucosa & septum Neck: non-tender, supple Respiratory: clear to auscultation, normal air movement Cardiovascular: nl pulses, regular rate and rhythm Results Result Diagram: 10/08/16 0807 10/08/16 0807 MARICRUZ ALLRED MD Oct 10, 2016 13:52
[2016-10-10] MEDS: ONDANSETRON 4 MG INJ IV PRN (14:38)
--- NOTE | 2016-10-10 15:27 | PDOCDIS ---
Discharge Instructions CONDITION Patient Condition: Stable HOME CARE INSTRUCTIONS: Special Diet: cardiac ACTIVITY: Activity Restrictions: Slowly Increase Activity FOLLOW UP/APPOINTMENTS Follow-up Plan f/u own pcp [address] parra [address] reis 2 wks MILAGROS VALENZUELA MD Oct 10, 2016 15:27
[2016-10-10] MEDS ORDERED: NIT4 SL (15:33)
[2016-10-10] MEDS ORDERED: ASPI325T4 PO (15:33)
[2016-10-10] MEDS ORDERED: LABE100T3 PO (15:33)
[2016-10-10] MEDS ORDERED: MECL12.574 PO (15:33)
[2016-10-10] MEDS ORDERED: LEVO500T10 PO (15:33)
[2016-10-10] MEDS ORDERED: TOPI25TA38 PO (15:33)
[2016-10-10] MEDS ORDERED: AMLO-145 PO (15:33)
[2016-10-10] MEDS ORDERED: HYDR-3498 PO (15:33)
[2016-10-10] MEDS ORDERED: HYDR-3672 PO (15:33)
[2016-10-10] MEDS ORDERED: ATOR40TA68 PO (15:33)
[2016-10-10] MEDS: LEVOFLOXACIN 500MG/D5W (PMX) 100 ML IVPB SCH (17:26)
--- NOTE | 2016-10-10 18:22 | CONS ---
Date/Time of Note Date/Time of Note DATE: 10/10/16 TIME: 18:20 Assessment/Plan Assessment/Plan Chief Complaint/Hosp Course IMP 1.HTN-uregency/emergency-now improved on current medical regimen 2.Chest pain-resolved. Negative trop x 3/NL EF by echo this admit 3.Dizziness-negative CT/MRI-recurrent 4.abnl ecg-negative tropx 3/NL EF 5.MAE 6.Carotid [id number]% Right. Vascular surgery following with plans for conservative management at this time REcc: -Tele -serial ecg's -Continue Labetalol/norvasc/hydralazine -Continue asa/stain -outpatient f/u Problems: Consultation Date/Type/Reason Admit Date/Time Oct 06, 2016 at 04:06 Initial Consult Date 10/06/2016 Type of Consultation: cardiology Reason for Consultation chest pain Referring Provider: MILAGROS VALENZUELA MD Exam/Review of Systems Vital Signs Vitals Vital Signs Date Time Temp Pulse Resp B/P Pulse Ox O2 Delivery O2 Flow Rate FiO2 10/10/16 16:16 83 10/10/16 15:51 98.0 19 125/65 99 Intake and Output 10/09/16 10/09/16 10/10/16 15:00 23:00 07:00 Intake Total 600 ml 790 ml Balance 600 ml 790 ml Exam Review of Systems: CONSTITUTIONAL: No fevers, chills. PULMONARY: No sob CARDIOVASCULAR: No chest pain/palpitations GASTROINTESTINAL: No nausea/vomiting. GENITOURINARY: No hematuria/dysuria. MUSCULOSKELETAL: No myagias/arthalgias. PSYCHIATRIC: The patient denies depression. NEUROLOGIC: headache Constitutional: alert Psych: no complaints ENMT: mucosa pink and moist Neck: jvd (8 cm water), supple Respiratory: clear to auscultation Cardiovascular: regular rate and rhythm Gastrointestinal: non-tender, soft Musculoskeletal: muscle tone (normal) Extremities: edema (none) Neurological: other (No focal deficits) Results Result Diagram: 10/08/16 0807 10/08/16 0807 Medications Medications Current Medications Aspirin (Aspirin) 325 mg DAILY PO Last administered on 10/10/16t 09:11; Admin Dose 325 MG; Start 10/06/16 at 09:00 Nitroglycerin (Nitroglycerin (Sl Tab) 0.4 Mg) 1 tab Q5M PRN SL ANGINA; Start at 08:30 Hydralazine HCl (Apresoline) 10 mg Q4H PRN IV SBP>160 Last administered on 10/07 11:46; Admin Dose 10 MG; Start 10/06/16 at 20:00 Ondansetron HCl (Zofran Inj) 4 mg Q4H PRN IV NAUSEA AND/OR VOMITING Last administered on 10/10/16 14:38; Admin Dose 4 MG; Start 10/07/16 at 09:30 Morphine Sulfate (morphine) 2 mg Q4H PRN IV PAIN Last administered on 14:36; Admin Dose 2 MG; Start 10/07/16 at 09:30 Hydralazine HCl (Apresoline) 50 mg TID PO Last administered on 10/10/16 12:38 ; Admin Dose 50 MG; Start 10/07/16 at 13:00 Labetalol HCl (Normodyne) 100 mg BID PO Last administered on 10/10/16 09:11; Admin Dose 100 MG; Start 10/07/16 at 12:30 Amlodipine Besylate (Norvasc) 5 mg BID PO Last administered on 10/10/16 09:11 ; Admin Dose 5 MG; Start 10/07/16 at 21:00 Atorvastatin Calcium (Lipitor) 40 mg HS PO Last administered on 10/09/16 20:52 ; Admin Dose 40 MG; Start 10/08/16 at 21:00 Acetaminophen (Tylenol Tab) 650 mg Q4H PRN PO PAIN AND OR ELEVATED TEMP Last administered on 10/09/16 16:30; Admin Dose 650 MG; Start 10/09/16 at 16:00 Meclizine HCl 25 mg 25 mg TID PRN PO DIZZINESS Last administered on 10/10/16 09:10; Admin Dose 25 MG; Start 10/09/16 at 17:30 Levofloxacin/ Dextrose (Levaquin 500mg/ D5W 100 ml (Pmx)) 100 ml @ 100 mls/hr Q24H IVPB Last administered on 10/09/16 18:32; Admin Dose 100 MLS/HR; Start at 18:00 Topiramate 25 mg 25 mg BID PO Last administered on 10/10/16 09:11; Admin Dose 25 MG; Start 10/09/16 at 21:00 Sodium Chloride (1/2 NS) 1,000 ml @ 40 mls/hr Q24H IV Last administered on 20:53; Admin Dose 40 MLS/HR; Start 10/09/16 at 20:00 Acetaminophen/ Hydrocodone Bitart ([place] (5/325)) 1 tab Q6H PRN PO PAIN LEVEL 4 -7 Last administered on 10/10/16 12:38; Admin Dose 1 TAB; Start 10/09/16 at 20: 00 SOFIYA MARTINEZ Oct 10, 2016 18:22
== END 2016-10-10 18:54 | disposition home or self-care (01) | DRG 305 ==
LOC: E/R 21:39 → MS4 10-06 04:06 → E/R 10-06 04:57
PROVIDERS: ADMIT Internal Medicine Nephrology; ATTEND Internal Medicine Nephrology
DX: I16.0 Hypertensive urgency (principal); E87.0 Hyperosmolality and hypernatremia; N39.0 Urinary tract infection, site not specified; I16.1 Hypertensive emergency; I65.21 Occlusion and stenosis of right carotid artery; E83.52 Hypercalcemia; R07.9 Chest pain, unspecified; R11.2 Nausea with vomiting, unspecified; R42 Dizziness and giddiness; E78.5 Hyperlipidemia, unspecified; B96.20 Unspecified Escherichia coli [E. coli] as the cause of diseases classified elsewhere; E66.9 Obesity, unspecified; Z68.32 Body mass index [BMI] 32.0-32.9, adult; Z79.82 Long term (current) use of aspirin
CPT/HCPCS: 36415; 70450; 70551; 71010; 80048; 80053; 80061; 81001; 81003; 82550; 82553; 83690; 84484; 85025; 85610; 85730; 87086; 93005; 93306; 93880; 96374; 96375; J0360; J1956; J2270; J2405; J7030

== ENCOUNTER 2017-05-04 08:54 | Emergency (ER) | END 2017-05-04 13:00 | disposition left against medical advice (07) ==

== ENCOUNTER 2018-02-06 10:22 | Emergency (ER) | END 2018-02-06 12:15 | disposition home or self-care (01) ==